=== PATIENT | female | born 1995 | race Hispanic/Latino ===

== ENCOUNTER 2023-03-22 05:09 | Inpatient (IN) | payer MEDICAID, OTHER ==
[2023-03-22] MEDS ORDERED: Methylergonovine 0.2 MG/ML VIAL IM PRN (05:21)
[2023-03-22] MEDS ORDERED: Bicitra 30 ML UDCUP PO PRN (05:21)
[2023-03-22] MEDS ORDERED: Famotidine/PF 20 mg/2ml Vial SLOW IVP PRN (05:21)
[2023-03-22] MEDS ORDERED: Misoprostol 200 MCG TAB PR PRN (05:21)
[2023-03-22] MEDS ORDERED: hydrALAZINE 20 MG/ML VIAL SLOW IVP PRN ×2 (05:21→11:07)
[2023-03-22] MEDS ORDERED: Diphenoxylate HCl/Atropine Tablet PO PRN (05:21)
[2023-03-22] MEDS ORDERED: Tranexamic Acid 1,000 MG/10 ML VIAL IVP PRN (05:21)
[2023-03-22] MEDS ORDERED: Promethazine HCl 25 MG/ML VIAL IM PRN ×3 (05:21→11:07)
[2023-03-22] MEDS ORDERED: CEFAZOLIN 2 GM in Sodium Chloride 0.9% 100 ML IVPB SCH (05:21)
[2023-03-22] MEDS ORDERED: Ondansetron PF 4 MG/2 ML Vial IVP PRN ×3 (05:21→11:07)
[2023-03-22] MEDS ORDERED: Carboprost 250 MCG/ML AMP IM PRN (05:21)
[2023-03-22 05:50] VITALS: BMI 26.2
[2023-03-22 05:55] LABS: Mean Corpuscular HGB CONC 32.9 g/dL (32.0-36.0); Mean Corpuscular Hemoglobin 28.6 pg (27.0-33.0); Mean Corpuscular Volume 86.8 fl (81.6-98.3); Mean Platelet Volume 12.7 fl (7.4-10.4); Platelet Count 226 10x3/uL (150-450); RBC Distribution Width 13.1 % (11.5-14.5); Red Blood Cell (RBC) Count 4.55 10x6/uL (3.90-5.03); White Blood Cell (WBC) Count 10.2 10x3/uL (3.5-10.5)
[2023-03-22] MEDS ORDERED: Lactated Ringer's 1,000 ML IV SCH (06:00)
[2023-03-22] MEDS ORDERED: NS w/ Oxytocin 30 units 500 ML IV SCH (06:00)
[2023-03-22 06:21] LABS: Syphilis Antibody Nonreactive (Nonreactive); Syphilis Antibody Index 0.03 S/CO (<1.00 Non-Reactive)
[2023-03-22] MEDS ORDERED: Ketorolac Tromethamine 30 MG/ML VIAL IVP PRN (06:57)
[2023-03-22] MEDS ORDERED: diphenhydrAMINE 50 MG/ML VIAL IVP PRN (06:57)
[2023-03-22] MEDS ORDERED: Moisturizing Cream (Eucerin) 113 GM JAR TOP PRN (06:57)
[2023-03-22] MEDS ORDERED: Meperidine HCl/PF 25 MG/ML VIAL SLOW IVP PRN (06:57)
[2023-03-22] MEDS ORDERED: Fentanyl 100 MCG/2 ML VIAL SLOW IVP PRN (06:57)
[2023-03-22] MEDS ORDERED: Ondansetron HCl/PF 4 MG/2 ML Vial IVP PRN (06:57)
[2023-03-22] MEDS ORDERED: Naloxone HCl 0.4 mg/ml Vial IVP PRN ×2 (06:57)
[2023-03-22] MEDS ORDERED: Naloxone HCl 0.4 mg/ml Vial IV PRN (06:57)
[2023-03-22] MEDS ORDERED: Promethazine HCl 25 MG SUPP PR PRN (06:57)
[2023-03-22] MEDS ORDERED: Ketorolac Tromethamine 30 MG/ML VIAL IVP SCH (07:00)
[2023-03-22] MEDS ORDERED: Communication Order-Pharmacy FS SCH (07:00)
[2023-03-22] MEDS ORDERED: Morphine PF 10 MG/10 ML VIAL ONE (07:08)
[2023-03-22] MEDS ORDERED: Ketorolac Tromethamine 30 MG/ML VIAL ONE (07:09)
[2023-03-22] MEDS ORDERED: Glycopyrrolate 0.2 MG/ML 5 ML SYRINGE ONE (07:09)
[2023-03-22] MEDS ORDERED: ePHEDrine Sulfate 50 MG/10 ML VIAL ONE (07:09)
[2023-03-22] MEDS ORDERED: Phenylephrine 40 MG/NS 250 ML 250 ML ONE (07:09)
[2023-03-22] MEDS ORDERED: Oxytocin 10 UNITS/ML VIAL ONE (07:09)
[2023-03-22] MEDS ORDERED: Dexamethasone 4 mg/ml Vial ONE (07:09)
[2023-03-22] MEDS ORDERED: Ondansetron PF 4 MG/2 ML Vial ONE (07:09)
[2023-03-22] MEDS ORDERED: Phenylephrine 10 MG/ML VIAL ONE (07:09)
[2023-03-22 07:20] LABS: Hep B Surf Ag - L&D Non-Reactive S/CO (NonReactive)
[2023-03-22] MEDS ORDERED: Labetalol HCl 100 MG/20 ML VIAL ONE (07:54)
[2023-03-22 08:06] LABS: HIV (1/2) Antibody/Antigen Non-Reactive (NonReactive); HIV 1/2 INDEX 0.15 S/CO (<1.00)
[2023-03-22] MEDS ORDERED: Bisacodyl 10 MG SUPP PR PRN (11:07)
[2023-03-22] MEDS ORDERED: Boostrix 0.5 ML (Tdap) VIAL (>/=7 yrs of age) IM ONE (11:07)
[2023-03-22] MEDS ORDERED: Lanolin Ointment 7 GM TUBE TOP PRN (11:07)
[2023-03-22] MEDS ORDERED: Simethicone Chewable 80 MG TAB PO PRN (11:07)
[2023-03-22] MEDS ORDERED: diphenhydrAMINE 25 MG CAP PO PRN (11:07)
[2023-03-22] MEDS ORDERED: HYDROcodone/Acetaminophen 5/325 mg Tablet PO PRN ×2 (11:07→19:00)
[2023-03-22] MEDS ORDERED: Docusate 100 MG CAP PO SCH (12:00)
[2023-03-22] MEDS ORDERED: Prenatal Vitamin 1 TAB PO SCH (12:00)
[2023-03-22] MEDS ORDERED: Ferrous Sulfate 325 MG TAB PO SCH (12:00)
[2023-03-22] MEDS: Docusate 100 MG CAP PO SCH (20:32)
[2023-03-22] MEDS: Ferrous Sulfate 325 MG TAB PO SCH (20:32)
[2023-03-23] MEDS: HYDROcodone/Acetaminophen 5/325 mg Tablet PO PRN ×2 (00:07→16:13)
[2023-03-23 04:17] LABS: Hemoglobin 11.1 g/dL (12.0-15.5); Mean Corpuscular HGB CONC 33.1 g/dL (32.0-36.0); Mean Corpuscular Hemoglobin 28.7 pg (27.0-33.0); Mean Corpuscular Volume 86.6 fl (81.6-98.3); Mean Platelet Volume 12.8 fl (7.4-10.4); Platelet Count 201 10x3/uL (150-450); Red Blood Cell (RBC) Count 3.87 10x6/uL (3.90-5.03); White Blood Cell (WBC) Count 14.1 10x3/uL (3.5-10.5)
[2023-03-23] MEDS: Docusate 100 MG CAP PO SCH ×2 (09:19→21:22)
[2023-03-23] MEDS: Ferrous Sulfate 325 MG TAB PO SCH (09:19)
[2023-03-23] MEDS: Prenatal Vitamin 1 TAB PO SCH (09:19)
[2023-03-23] MEDS: Ibuprofen 800 MG TAB PO SCH ×2 (13:53→21:22)
[2023-03-24] MEDS: Ferrous Sulfate 325 MG TAB PO SCH ×2 (03:49→07:40)
[2023-03-24] MEDS: Ibuprofen 800 MG TAB PO SCH ×2 (05:35→14:42)
[2023-03-24] MEDS: HYDROcodone/Acetaminophen 5/325 mg Tablet PO PRN ×2 (05:36→12:18)
[2023-03-24] MEDS: Prenatal Vitamin 1 TAB PO SCH (09:07)
[2023-03-24] MEDS: Docusate 100 MG CAP PO SCH (09:07)
[2023-03-24 09:55] VITALS: TEMP 98.3
[2023-03-24 12:39] VITALS: BP 115/66
== END 2023-03-24 17:00 | disposition home or self-care (01) | DRG 788 ==
LOC: CSHLD 05:09 → CSHPP 11:22
PROVIDERS: ADMIT Family Medicine; ATTEND Family Medicine
PROC: 10D00Z1 Extraction of Products of Conception, Low, Open Approach (ICD-10-PCS; principal; 2023-03-22)
DX: O36.5930 Maternal care for other known or suspected poor fetal growth, third trimester, not applicable or unspecified (principal); Z3A.37 37 weeks gestation of pregnancy; Z37.0 Single live birth; O34.211 Maternal care for low transverse scar from previous cesarean delivery; Z79.899 Other long term (current) drug therapy; O34.13 Maternal care for benign tumor of corpus uteri, third trimester; D25.9 Leiomyoma of uterus, unspecified
CPT/HCPCS: 36415; 51702; 85027; 86780; 86850; 86900; 86901; 87340; 87389; J1100; J1885; J2274; J2370; J2405; J2590; J3490; J7120; S0028

== ENCOUNTER 2024-09-08 12:01 | Outpatient (CLI) | payer OTHER | END 2024-09-08 12:02 | disposition home or self-care (01) | LOC: CSHULT 12:01 | PROVIDERS: ATTEND Family Medicine | DX: Z34.02 Encounter for supervision of normal first pregnancy, second trimester (principal); Z3A.20 20 weeks gestation of pregnancy | CPT/HCPCS: 76805 ==